=== PATIENT | male | born 1935 | race Caucasian/White ===

== ENCOUNTER 2020-12-28 11:32 | Inpatient (IN) | payer OTHER ==
[~2020-12-28] VITALS: Ht 182.9 cm; Wt 90.7 kg
[~2020-12-28 11:32] MED LIST: ASCO500 PO; CYCL10 PO; ERYT500; FISH1000 PO; FLUR100; HYDACE5 PO; PRED10 PO; TOCO400 PO; VITA25000 PO; Vitamin D2000 UNIT PO; [UNRECOGNIZED DRUG - OTHER] PO
[2020-12-28 12:19] LABS: BASOPHILS ABSOLUTE AUTO 0.01 K/mm3 (0.00-0.23); BASOPHILS PERCENT AUTO 0 % (0-2); EOSINOPHILS PERCENT AUTO 0 % (0-6); Hematocrit 33.4 % (37.0-53.0); Hemoglobin 11.2 g/dL (13.5-17.5); IMMATURE GRAN PERCENT AUTO 1 % (0-1); LYMPHOCYTES ABSOLUTE AUTO 0.61 K/mm3 (0.84-5.20); LYMPHOCYTES PERCENT AUTO 5 % (21-46); MONOCYTES ABSOLUTE AUTO 0.82 K/mm3 (0.16-1.47); MONOCYTES PERCENT AUTO 7 % (4-13); Mean Corpuscular HGB 32.8 pg (26.0-34.0); Mean Corpuscular HGB Conc 33.5 g/dL (31.5-36.5); Mean Corpuscular Volume 98 fL (80-100); Mean Platelet Volume 9.8 fL (9.1-12.4); NEUTROPHILS ABSOLUTE AUTO 10.54 K/mm3 (1.96-9.15); NEUTROPHILS PERCENT AUTO 87 % (41-73); Platelet Count 136 K/mm3 (150-400); RDW Coefficient Variation 13.8 % (11.7-14.2); RDW Standard Deviation 49.8 fL (35.1-46.3); Red Blood Cell Count 3.41 M/mm3 (4.30-5.90); White Blood Cell Count 12.08 K/mm3 (4.00-11.30)
[2020-12-28 12:37] LABS: Alanine Aminotransfer (ALT/SGP 22 U/L (12-78); Albumin, Blood 3.4 g/dL (3.4-5.0); Alk Phos 67 U/L (50-136); Anion Gap 7 mmol/L (6-16); Aspartate Aminotrans (AST/SGOT 12 U/L (12-37); Bilirubin, Total 0.7 mg/dL (0.1-1.0); Blood Urea Nitrogen 21 mg/dL (8-24); Bun/Creatinine Ratio 20.4 (12.0-20.0); CO2, Blood 26 mmol/L (21-32); Calcium, Blood 8.7 mg/dL (8.5-10.1); Chloride, Blood 106 mmol/L (98-108); Creatinine, Blood 1.03 mg/dL (0.60-1.20); Globulin, Blood 3.3 g/dL (2.2-4.0); Glomerular Filtration Rate >60 (60-); Glucose, Blood 108 mg/dL (70-99); Potassium, Blood 3.8 mmol/L (3.5-5.5); Sodium, Blood 139 mmol/L (136-145); Total Protein, Blood 6.7 g/dL (6.4-8.2)
[2020-12-28 14:10] LABS: SARS-Cov-2 (COVID-19) PCR, MMC NEGATIVE (NEGATIVE)
[2020-12-28 14:54] LABS: Source, Urine Catheter
[2020-12-28 14:58] LABS: Appearance, Urine Clear (Clear); Bilirubin, Urine Neg (Neg); Blood, Urine 3+ (Neg); Color, Urine Yellow (P-Yellow); Glucose Qualitative, Urine Neg (Neg); Ketones, Urine 2+ (Neg); Leukocyte Esterase, Urine 1+ (Neg); Nitrite, Urine Neg (Neg); Protein, Urine 3+ (Neg); Specific Gravity, Urine 1.025 (1.003-1.022); Urobilinogen, Urine NORM (Normal)
[2020-12-28 15:25] LABS: White Blood Cells, Urine 0-2 /hpf (0-5)
[2020-12-28 15:26] LABS: Bacteria Few /hpf; Squamous Epithelial Cells Rare /hpf (Few)
--- NOTE | 2020-12-28 20:04 | NUR ---
ADMIT NOTE HANDOFF RECEIVED FROM ER NURSE DUYEN. PT BROUGHT TO FLOOR VIA GURNEY. PERSONAL POSSESSIONS WITH PT. PT ORIENTED TO UNIT. CALL BUTTON WITHIN REACH. IV FLUIDS STARTED ORDERED. VIDEO MONITORING IN PLACE. BED ALARM IS ON.
--- NOTE | 2020-12-28 23:40 | NUR ---
VERIFIED VIDEO MONITORING CALLED VIDEO DAYCARE WORKER TO VERIFY VIDEO MONITORING IS IN PLACE FOR THIS PT.
--- NOTE | 2020-12-29 02:33 | NUR ---
CALLED HOSPITALIST PT HIGHLY AGITATED SUDDENLY. PULLING AT LINES, CLOTHES, RAILINGS. PT CONTINUOUSLY MOVING EXTREMETIES AND BODY. PT STATED HE FELT SOB. O2 SAT WAS WITHIN NORMAL LIMITS. I DID ASK RESPIRATORY TO CHECK HIM OUT AND HE WAS WNL IN THEIR OPINION. I DID CALL HOSPITALIST AND REQUEST MEDICATION FOR AGITATION. I ALSO MEDICATED THIS PT FOR PAIN AND I GOT HIM A COUPLE OF WARM BLANKETS
--- NOTE | 2020-12-29 04:13 | NUR ---
SHIFT SUMMARY ADMITTED FOR AMS/SOB/SEPSIS. DNI CODE. HE MAY HAVE CELLULITIS ON LEFT ANKLE. ATYPICAL PNEUMONIA IS POSSIBLE ALSO. IV ANTIB RX ARE SCHEDULED. SO FAR WE HAD ONE EPISODE OF TACHYPNEA AND AGITATION. RESPIRATORY EVALUATED AND WE AGREED THIS SEEMED LIKE MORE OF AN ANXIETY AND/OR PAIN RESPONSE. O2 SATS WNL. I DID GET ORDERS FOR PRN ANXIETY RX AND I ALSO MEDICATED FOR PAIN. THIS DID APPEAR EFFECTIVE. THE PT CALMED AND EVENTUALLY FELL ASLEEP. IT WAS REPORTED TO ME BY ER STAFF THAT HIS WAS A POOR HISTORIAN AND MAY POSSIBLY ALSO HAVE DEMENTIA.
[2020-12-29 07:38] LABS: BASOPHILS ABSOLUTE AUTO 0.01 K/mm3 (0.00-0.23); BASOPHILS PERCENT AUTO 0 % (0-2); EOSINOPHILS PERCENT AUTO 0 % (0-6); Hematocrit 31.8 % (37.0-53.0); Hemoglobin 10.5 g/dL (13.5-17.5); IMMATURE GRAN ABSOLUTE AUTO 0.05 K/mm3 (0.00-0.10); IMMATURE GRAN PERCENT AUTO 1 % (0-1); LYMPHOCYTES ABSOLUTE AUTO 0.42 K/mm3 (0.84-5.20); LYMPHOCYTES PERCENT AUTO 4 % (21-46); MONOCYTES ABSOLUTE AUTO 0.64 K/mm3 (0.16-1.47); MONOCYTES PERCENT AUTO 6 % (4-13); Mean Corpuscular HGB 32.6 pg (26.0-34.0); Mean Corpuscular Volume 99 fL (80-100); Mean Platelet Volume 10.2 fL (9.1-12.4); NEUTROPHILS ABSOLUTE AUTO 9.06 K/mm3 (1.96-9.15); NEUTROPHILS PERCENT AUTO 89 % (41-73); Platelet Count 119 K/mm3 (150-400); RDW Coefficient Variation 13.9 % (11.7-14.2); RDW Standard Deviation 50.7 fL (35.1-46.3); Red Blood Cell Count 3.22 M/mm3 (4.30-5.90); White Blood Cell Count 10.18 K/mm3 (4.00-11.30)
[2020-12-29 07:59] LABS: Alanine Aminotransfer (ALT/SGP 23 U/L (12-78); Albumin, Blood 2.8 g/dL (3.4-5.0); Albumin/Globulin Ratio 0.9 (0.8-1.8); Alk Phos 56 U/L (50-136); Anion Gap 4 mmol/L (6-16); Aspartate Aminotrans (AST/SGOT 24 U/L (12-37); Bilirubin, Total 0.4 mg/dL (0.1-1.0); Blood Urea Nitrogen 21 mg/dL (8-24); Bun/Creatinine Ratio 21.6 (12.0-20.0); CO2, Blood 25 mmol/L (21-32); Calcium, Blood 8.1 mg/dL (8.5-10.1); Chloride, Blood 111 mmol/L (98-108); Creatinine, Blood 0.97 mg/dL (0.60-1.20); Glomerular Filtration Rate >60 (60-); Glucose, Blood 101 mg/dL (70-99); Potassium, Blood 3.4 mmol/L (3.5-5.5); Sodium, Blood 140 mmol/L (136-145); Total Protein, Blood 5.8 g/dL (6.4-8.2)
--- NOTE | 2020-12-29 18:17 | NUR ---
SHIFT SUMMARY: NO ACUTE EVENTS. HE IS A&O X 1-2, CONFUSED, IMPULSIVE, EASILY IRRITABLE. HAVING URINARY FREQUENCY, POSSIBLE RETENTION. NO C/O PAIN TODAY, STATED THAT HIS L FOOT WAS "A LITTLE TENDER." GAIT IS IMPAIRED, HIGH FALL RISK, CHAIR AND BED ALARMS IN USE. TOLERATING IV ABX. APPETITE OK. ERYTHEMA AND EDEMA ON L FOOT HAS IMPROVED. VISITED FOR A BRIEF TIME TODAY, PT WAS SLEEPING.
[2020-12-30 04:45] LABS: BASOPHILS ABSOLUTE AUTO 0.01 K/mm3 (0.00-0.23); BASOPHILS PERCENT AUTO 0 % (0-2); EOSINOPHILS ABSOLUTE AUTO 0.15 K/mm3 (0.00-0.68); EOSINOPHILS PERCENT AUTO 2 % (0-6); Hematocrit 34.9 % (37.0-53.0); Hemoglobin 11.6 g/dL (13.5-17.5); IMMATURE GRAN ABSOLUTE AUTO 0.03 K/mm3 (0.00-0.10); IMMATURE GRAN PERCENT AUTO 0 % (0-1); LYMPHOCYTES PERCENT AUTO 10 % (21-46); MONOCYTES ABSOLUTE AUTO 0.81 K/mm3 (0.16-1.47); MONOCYTES PERCENT AUTO 11 % (4-13); Mean Corpuscular HGB 32.6 pg (26.0-34.0); Mean Corpuscular HGB Conc 33.2 g/dL (31.5-36.5); Mean Corpuscular Volume 98 fL (80-100); NEUTROPHILS ABSOLUTE AUTO 5.88 K/mm3 (1.96-9.15); NEUTROPHILS PERCENT AUTO 77 % (41-73); Platelet Count 132 K/mm3 (150-400); RDW Coefficient Variation 13.7 % (11.7-14.2); RDW Standard Deviation 49.7 fL (35.1-46.3); Red Blood Cell Count 3.56 M/mm3 (4.30-5.90); White Blood Cell Count 7.68 K/mm3 (4.00-11.30)
[2020-12-30 05:03] LABS: Anion Gap 6 mmol/L (6-16); Blood Urea Nitrogen 19 mg/dL (8-24); Bun/Creatinine Ratio 21.3 (12.0-20.0); CO2, Blood 25 mmol/L (21-32); Calcium, Blood 8.4 mg/dL (8.5-10.1); Chloride, Blood 111 mmol/L (98-108); Creatinine, Blood 0.89 mg/dL (0.60-1.20); Glomerular Filtration Rate >60 (60-); Glucose, Blood 94 mg/dL (70-99); Potassium, Blood 3.4 mmol/L (3.5-5.5); Sodium, Blood 142 mmol/L (136-145)
--- NOTE | 2020-12-30 05:57 | NUR ---
SHIFT SUMMARY- PT. CONFUSED AND IMPULSIVE DURING THE NIGHT, ALERT TO SELF. FREQUENT URINATION T/O THE NIGHT. CONT/INCONT, ATTENDS IN PLACE. OCCASIONALLY USING URINAL AT BEDSIDE WITH FREQUENT ACCIDENTS IN BED. CONDOM CATHETER PUT ON, TOLERATED WELL. PT. HAD ELEVEATED BP THIS SHIFT, HOSPITALIST NOTIFED. RECEIVED ORDER FOR NOW DOSE OF METOPROLOL AND SCHEDULED BID, ADMINISTERED PER EMAR. NO COMPLAINTS OF PAIN OR DISCOMFORT T/O THE NIGHT. PT. SITTING IN CHAIR AT THIS TIME, DENIES NEEDS. CALL LIGHT WITHIN REACH AND CHAIR ALARM. WILL CONT TO MONITOR.
[2020-12-30] MEDS ORDERED: MIRALAX17 G2 PO (12:12)
[2020-12-30] MEDS ORDERED: B-121000 MC4 PO (12:17)
[2020-12-30] MEDS ORDERED: FISH OIL 1,2001 EAC7 PO (12:17)
[2020-12-30] MEDS ORDERED: TEMOVATE15 G1 TOP (12:19)
[2020-12-30] MEDS ORDERED: TERBINAFINE15 GM TOP (12:21)
[2020-12-30] MEDS ORDERED: GORMEL TEN228 G1 TOP (12:22)
[2020-12-30] MEDS ORDERED: TRIDERM28.4 GM TOP (12:23)
[2020-12-30] MEDS ORDERED: VITAMIN A PO (12:24)
[2020-12-30] MEDS ORDERED: CEFD300 PO (12:56)
[2020-12-30] MEDS ORDERED: LOSA50 PO (13:11)
[2020-12-30 14:44] LABS: Vancomycin, Trough 6.8 ug/mL (5.0-10.0)
--- NOTE | 2020-12-30 16:12 | NUR ---
Patient is adament about taking the ty off. Was agitated trying to hit when i was tieing the ty.
--- NOTE | 2020-12-30 16:34 | NUR ---
Patient is confused. was under the immpression he was going home. around noon wanted his personal belongings. started getting dressed. He is a fall risk and was getting up frequently to try either to go for a walk and to use the restroom. He threatened to be combative, so I called security. He layed down in bed. He was being combative toward the nurse and all staff. He is emotional because he spoke with his told her to take him home. Family showed up and is distraught. Patient is in ty and wrist restaints for being combative and treatening.
--- NOTE | 2020-12-30 16:56 | NUR ---
Patient refused vitals.
--- NOTE | 2020-12-30 17:10 | NUR ---
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 PT HAD UNEVENTFUL MORNING WITH MODERATE CONFUSION AND SOME REDIRECTABLE BEHAVIOR. AROUND 1300, PT BECAME QUITE AGITATED AND IRRITABLE WANTING TO WALK AROUND THE UNIT WITHOUT ASSISTANCE/WALKER. PT AGREED TO TAKING SEROQUEL, WHICH RESULTED IN A CALMER PERIOD FOR ABOUT 1 HOUR. AFTER PATIENT WAS BACK UP, HE CONTINUED TO GET MORE AGGRESSIVE AND VERBALLY AND PHYSICALLY COMBATIVE. SECURITY AND STRAWHAT BLOCKING OPERATOR CALLED FOR BACK UP AND PT WAS PLACED IN KEELEY VEST RESTRAINT. THE PATIENT WAS EASILY ABLE TO UNTIE THE KEELEY, SO UPDATED THE ORDER TO ADD 2 POINT WRIST NON VOILENT SOFT RESTRAINTS AND 4 SIDE RAILS. RESTRAINTS APPLIED AND PATIENT CONTINUED EMOTIONALLY ESCALATE, THREATENING STAFF, KICKING, ATTEMPTING TO HIT AND SPITTING OUT WATER AT NURSE. PT REFUSED TO TAKE ADDITIONAL SEROQUEL AT THIS POINT AND DR SCHULTZ ORDERED ZYPREXA IM. PATIENT'S IN ROOM DURING PT'S BEHAVIOR CHANGES, AND UPDATED ON PLAN OF CARE. ACCORDING TO LAST UPDATE FROM LINE OUT WORKER, CURRENT PLAN IS STILL BEING CONSIDERED BETWEEN SNF PLACEMENT OR BACK HOME WITH . PT'S STATES HIS BEHAVIOR IS WAY OFF HIS NORMAL BASELINE AND SHE WAS VERY EMOTIONAL SEEING HIM LIKE THIS. THERAPEUTIC COMMUNICATION PROVIDED. THE PATIENT IS CURRENTLY LYING IN BED IN WRIST/KEELEY/SIDE RAIL RESTRAINTS WITH CALL LIGHT IN REACH. PT REFUSED AFTERNOON VITALS.
--- NOTE | 2020-12-31 06:24 | NUR ---
SHIFT SUMMARY- PT. IN KEELEY VEST AND BILATERAL SOFT WRIST RESTRAINTS. AGITATED AND COMBATIVE DURING THE NIGHT. MEDICATED WITH PRN SEROQUEL AND ZYPREXA WITH NO EFFECT. ATTEMPTED TO ASSIST PT. UP TO RECLINER CHAIR, PT. BEGAN HITTING AND KICKING. NOTED MULTIPLE BRUISING TO BUE AND SKIN TEAR TO R ELBOW R/T PT. AGITATED IN BED AND TRYING TO PULL OUT RESTRAINTS. BP ELEVATED DURING THEN NIGHT, MEDICATED PER EMAR X2, BP IMPROVED THIS AM. CALL LIGHT WITHIN REACH, SIDE RAILS UPX4, AND BED ALARM ON. WILL CONT TO MONITOR.
--- NOTE | 2021-01-01 04:40 | NUR ---
SHIFT SUMMARY PT HAS SLEPT MOST OF THE SHIFT, VERY DROWSY AND LETHARGIC, AWAKES TO VERBAL STIMULI BUT QUICKLY FALLS BACK TO SLEEP. VITALS ARE STABLE. PT CONFUSED A/O TO SELF ONLY. PT HAS NOT BEEN COMBATIVE TOWARDS STAFF THIS SHIFT AND HAS BEEN COOPERATIVE WITH CARE. INCONTINENT, REQUIRING A LINEN CHANGE THIS SHIFT. IVF INFUSING. BED IN LOWEST POSITION, CALL LIGHT WITHIN REACH.
--- NOTE | 2021-01-01 05:57 | NUR ---
AM NOTE PT AWOKE THIS MORNING COMPLETELY A/O TO PERSON, PLACE, SELF AND YEAR. PT WAS ABLE TO MAKE CONVERSATION, AND WAS PLESANT TOWARDS STAFF. PT AMBULATED TO THE BATHROOM WITH 2 PA AND A FWW AND HAS GOOD STRENGTH.
--- NOTE | 2021-01-01 17:40 | NUR ---
SHIFT SUMMARY PT SLEPT LATE THIS AM, UNABLE TO WAKE FOR BREAKFAST UNTIL LATER. PT THEN MUCH MORE ORIENTED THAN YESTERDAY, PER REPORT AND GLOBAL TECHNICAL WRITER WHO WAS HERE YESTERDAY WELL. PT UP TO BTHRM WHEN AWAKE AND THEN TO CHAIR AT BS. PT ABLE TO WORK WITH THERAPY TODAY AND WALK IN [place] AND . PT'S HERE TO VISIT THIS AFTERNOON. PER , PT IS STILL NOT HIS USUAL SELF. ORIENTED OFF AND ON, AND GETS IMPATIENT, WANTING TO GO HOME. PER DR CHU, PT TO D/C TO R/H ON WEDNESDAY. IV ABX INFUSING PER EMAR. PT ABLE TO FEED HIMSELF TODAY. DENIED PAIN. NO OTHER C/O. CALL LT IN REACH.
--- NOTE | 2021-01-02 05:57 | NUR ---
SHIFT SUMMARY PATIENT ALERT AND ORIENTED X2. PLEASANTLY CONFUSED. HAD NO COMPLAINTS OF PAIN OR SHORTNESS OF BREATH. NO ACUTE ISSUES NOTED OVERNIGHT. IV PATENT AND INFUSING. BED IN LOWEST POSITION WITH WHEELS LOCKED AND ALARM ON. CALL LIGHT WITHIN REACH. REPORT GIVEN TO ONCOMING RN.
--- NOTE | 2021-01-02 17:57 | NUR ---
NO ACUTE CHANGES TO PT. PT TO DISCHARGE HOME WITH ON WEDNESDAY.
--- NOTE | 2021-01-02 22:20 | NUR ---
PHYSICIAN COMMUNICATION SPOKE WITH DR ELI INFORMING HIM THAT THE PATIENT WAS AGITATED, NOT RESPONDING TO MEDICATIONS. DR ELI OKAYED ORDER FOR RESTRAINTS, KEELEY, SOFT WRISTS, AND FOUR SIDE RAILS.
--- NOTE | 2021-01-03 05:43 | NUR ---
SHIFT SUMMARY PATIENT ALERT AND ORIENTED TO SELF, NOT REDIRECTABLE. PATIENT VERY ANXIOUS AND REQUIRED TO BE MEDICATED WITH IV ATIVAN PER EMAR AND BEING PLACED IN RESTRAINTS. IV PATENT AND FLUSHED. BED IN LOWEST POSITION WITH WHEELS LOCKED AND ALARM ON. CALL LIGHT WITHIN REACH. REPORT GIVEN TO ONCOMING RN.
--- NOTE | 2021-01-03 07:07 | NUR ---
PATIENT ACTING AGGRESSIVE TOWARDS STAFF. INTERFERING WITH STAFF PROVIDING CARE. IM ZYPREXA ADMINISTERED.
[2021-01-03 13:48] LABS: BASOPHILS ABSOLUTE AUTO 0.04 K/mm3 (0.00-0.23); BASOPHILS PERCENT AUTO 1 % (0-2); EOSINOPHILS ABSOLUTE AUTO 0.22 K/mm3 (0.00-0.68); EOSINOPHILS PERCENT AUTO 3 % (0-6); Hematocrit 36.9 % (37.0-53.0); Hemoglobin 12.2 g/dL (13.5-17.5); IMMATURE GRAN ABSOLUTE AUTO 0.06 K/mm3 (0.00-0.10); IMMATURE GRAN PERCENT AUTO 1 % (0-1); LYMPHOCYTES ABSOLUTE AUTO 0.76 K/mm3 (0.84-5.20); LYMPHOCYTES PERCENT AUTO 10 % (21-46); MONOCYTES ABSOLUTE AUTO 0.62 K/mm3 (0.16-1.47); MONOCYTES PERCENT AUTO 8 % (4-13); Mean Corpuscular HGB 32.1 pg (26.0-34.0); Mean Corpuscular HGB Conc 33.1 g/dL (31.5-36.5); Mean Corpuscular Volume 97 fL (80-100); NEUTROPHILS ABSOLUTE AUTO 6.26 K/mm3 (1.96-9.15); NEUTROPHILS PERCENT AUTO 79 % (41-73); Platelet Count 175 K/mm3 (150-400); RDW Coefficient Variation 13.5 % (11.7-14.2); RDW Standard Deviation 48.1 fL (35.1-46.3); White Blood Cell Count 7.96 K/mm3 (4.00-11.30)
[2021-01-03 14:19] LABS: Anion Gap 6 mmol/L (6-16); Blood Urea Nitrogen 14 mg/dL (8-24); Bun/Creatinine Ratio 20.9 (12.0-20.0); CO2, Blood 25 mmol/L (21-32); Calcium, Blood 8.7 mg/dL (8.5-10.1); Chloride, Blood 111 mmol/L (98-108); Creatinine, Blood 0.67 mg/dL (0.60-1.20); Glomerular Filtration Rate >60 (60-); Glucose, Blood 100 mg/dL (70-99); Potassium, Blood 3.2 mmol/L (3.5-5.5); Sodium, Blood 142 mmol/L (136-145)
--- NOTE | 2021-01-03 17:47 | NUR ---
SHIFT SUMMARY PT AXO TO FAMILY ONLY. PT IRRITABLE AND ANXIOUS WHEN AWAKE. PT IN WRIST RESTRAINTS AT START OF SHIFT. PT'S SPOUSE IN AT 0900 WHO REQUESTED THEN REMOVED THE WRIST RESTRAINTS. THIS NURSE ASKED SPOUSE TO STAY WITH PATIENT TO KEEP HIM CALM AND TO NOTIFY THIS NURSE WHEN SHE LEAVES. PATIENT BACK IN WRIST RESTRAINTS TO PROTECT SELF, STAFF AND IV AT 1516. ALTERNATE IV ATTEMPTED R/T NEW ORDER OF IV POTASSIUM, UNSUCESSFUL. AT 0758 PT HYPERTENSIVE AT 185/111, MEDICATED PER EMAR, DR SCHULTZ NOTIFIED, NO NEW ORDERS. 149/78 AT 0851. THEN AT 1546 PT WAS 189/102. DR SCHULTZ NOTIFIED AND MEDICATED PER EMAR. PERSONNEL MONITOR TO RECHECK BP AT THIS TIME. AWAITING COLLECTION OF URINE AT THIS TIME. PT INCONTINENT BUT SOMETIMES VOIDS IN URINAL. LAST ATTEMPT, PT UNCOOPERATIVE AND COLLECTION UNSUCCESSFUL. PT MEDICATED FOR ANXIETY WHILE SPOUSE WAS PRESENT, WITH ATIVAN PER EMAR. THIS MED DC'D TODAY. MEDICATED WITH SEROQUEL X1 THIS SHIFT FOR AGGITATION, SEE MAR. BED IN LOW POSITION, CALL LIGHT WITHIN REACH, BED ALARM ON.
--- NOTE | 2021-01-04 19:08 | NUR ---
PT RESTING IN BED AFTER DINNER, TRANSPORT TO AND FROM CT, AND PM MEDICATION ADMIN. PT MAKES NO COMPLAINTS AT THIS TIME AND WAS MILDLY AGGITATED THIS SHIFT REACHING FOR HIS IV STATING "I NEED THIS OUT." AT BEDSIDE THIS SHIFT AND STATES PT AGGITATION AND MENTATION IS BELOW BASELINE. BILAT SOFT WRIST RESTRAINTS IN USE FOR SAFETY AND FALL RISK. BED IN LOW POSITION AND CALL LIGHT WITHIN REACH.
--- NOTE | 2021-01-05 04:03 | NUR ---
PATIENT HAD A DIFFICULT START TO THE SHIFT. SEROQUEL GIVEN AT BEDTIME AND IM ZYPREXA ADMINISTERED A COUPLE OF HOURS LATER. PATIENT CONTINUED TO ATTEMPT TO CLIMB OUT OF BED AND WAS VERY DIFFICULT TO REDIRECT. ORIENTED TO SELF ONLY. I PLACED KEELEY VEST ON HIM FOR INCREASED PATIENT SAFETY AND RECIEVED AN ORDERED FROM DR LAMAR. PATIENT CONTINUES ON NS @ 50/HR. PATIENT HAS NOW BEEN ASLEEP AND IS RESTING COMFORTABLY IN BED. CALL LIGHT IS WITHIN REACH.
--- NOTE | 2021-01-05 18:31 | NUR ---
PT IS RESTING IN BED, ALERT AND ORIENTED TO SELF. PT CONINUES WITH KEELEY VEST AND 4 SIDERAILS FOR SAFETY HE IS A HIGH FALL RISK, CONTINUES TO TRY AND GET UP FROM BED, AGGIATATION, SWINGS ARMS WHEN UPSET AND PULLS ON LINES. PT HAS BEEN MEDICATION COMPLIANT AND ATE ALL THREE MEALS. NO OTHER ACUTE CHANGES. BED IN LOW POSITION AND CALL LIGHT WITHIN REACH. STAFF WILL CONT. TO MONITOR.
--- NOTE | 2021-01-06 04:01 | NUR ---
SHIFT SUMMARY A/O TO SELF ONLY. GARBLED, NONSENSICAL SPEECH AT TIMES. ATTEMPTING TO GET OOB T/O NIGHT. PT BEING VERBALLY ABUSIVE AND HITTING STAFF. BILATERAL SOFT WRIST RESTRAINTS PLACED IN ADDITION TO KEELEY AND 4 SIDE RAILS. IM ZYPREXA GIVEN WITH NO DECREASE IN AGITATION NOTED. REFUSING AM VITALS. BED IN LOWEST POSITION WITH CALL LIGHT IN REACH. WILL CONTINUE TO MONITOR AND REPORT TO ONCOMING RN.
[2021-01-06 09:18] LABS: BASOPHILS ABSOLUTE AUTO 0.04 K/mm3 (0.00-0.23); BASOPHILS PERCENT AUTO 1 % (0-2); EOSINOPHILS ABSOLUTE AUTO 0.17 K/mm3 (0.00-0.68); EOSINOPHILS PERCENT AUTO 3 % (0-6); Hematocrit 37.2 % (37.0-53.0); Hemoglobin 12.5 g/dL (13.5-17.5); IMMATURE GRAN ABSOLUTE AUTO 0.06 K/mm3 (0.00-0.10); IMMATURE GRAN PERCENT AUTO 1 % (0-1); LYMPHOCYTES ABSOLUTE AUTO 0.69 K/mm3 (0.84-5.20); LYMPHOCYTES PERCENT AUTO 10 % (21-46); MONOCYTES ABSOLUTE AUTO 0.44 K/mm3 (0.16-1.47); MONOCYTES PERCENT AUTO 7 % (4-13); Mean Corpuscular HGB 32.3 pg (26.0-34.0); Mean Corpuscular HGB Conc 33.6 g/dL (31.5-36.5); Mean Corpuscular Volume 96 fL (80-100); Mean Platelet Volume 9.6 fL (9.1-12.4); NEUTROPHILS ABSOLUTE AUTO 5.36 K/mm3 (1.96-9.15); NEUTROPHILS PERCENT AUTO 79 % (41-73); Platelet Count 210 K/mm3 (150-400); RDW Coefficient Variation 13.7 % (11.7-14.2); RDW Standard Deviation 48.6 fL (35.1-46.3); Red Blood Cell Count 3.87 M/mm3 (4.30-5.90); White Blood Cell Count 6.76 K/mm3 (4.00-11.30)
[2021-01-06 09:35] LABS: Anion Gap 3 mmol/L (6-16); Blood Urea Nitrogen 13 mg/dL (8-24); Bun/Creatinine Ratio 16.6 (12.0-20.0); CO2, Blood 30 mmol/L (21-32); Calcium, Blood 9.2 mg/dL (8.5-10.1); Chloride, Blood 110 mmol/L (98-108); Creatinine, Blood 0.78 mg/dL (0.60-1.20); Glomerular Filtration Rate >60 (60-); Glucose, Blood 102 mg/dL (70-99); Potassium, Blood 3.4 mmol/L (3.5-5.5); Sodium, Blood 143 mmol/L (136-145)
--- NOTE | 2021-01-06 17:33 | NUR ---
SUMM- PT ALERT TO SELF. SLEPT MOST OF THE DAY. DURING WAKING HOURS PT IS RESTLESS AND AGITATED WITH PT CARE. BECAME COMBATIVE DURING ATTENDS CHANGE. TRIES TO GET OOB AND UNDO RESTRAINTS DUSING WAKING HOURS. YEAST RASH NOTED TO GROIN, STARTED ON NYSTATIN CREAM. BP'S ELEVATED TODAY, HYDRALAZINE 10MG AT 1730, WILL F/U WITH BP. PT REFUSED LUNCH AND A FEEDER FOR BREAKFAST. NOT TAKING IN ORAL FLUIDS AND HAS IVF RUNNING. IS INCONT ATTENDS. ADJUSTS SELF FREQ IN BED AND STAFF ROUTINE TURNS AND CHANGE.
--- NOTE | 2021-01-07 03:34 | NUR ---
SHIFT SUMMARY A/O TO SELF ONLY. SPEECH MORE CLEAR THIS SHIFT. PT STATES THAT HE PREFERS TO CLEAN HIS GROIN AREA ON HIS OWN. THIS MAY BE A FACTOR THAT CONTRIBUTES TO HIS AGITATION. PT COOPERATIVE T/O SHIFT AND RESTING IN BED. RESTRAINTS IN PLACE FOR SAFETY. VSS, NO ACUTE CHANGES AT THIS TIME. BED IN LOWEST POSITION WITH CALL LIGHT IN REACH. WILL CONTINUE TO MONITOR AND REPORT TO ONCOMING RN.
--- NOTE | 2021-01-07 17:38 | NUR ---
SUMMARY- PT ALERT TO SELF AND FAMILY, FOLLOWS DIRECTIONS. UP IN CHAIR MOST OF THE DAY WALKED 6 STEPS TO CHAIR WITH GB/WALKER AND 2 STAFF MAX ASSIST, PT IS RIGID AND WANTS TO LEAN. VOIDED IN URINAL MOST OF THE TIME. FED SELF AND TOLERATING FOOD AND FLUIDS. CONT IVF 5OML/HR. AWAITING PLACEMENT
--- NOTE | 2021-01-08 04:45 | NUR ---
SHIFT SUMMARY A/O TO SELF AND FAMILY. SPEECH BECOMING MORE CLEAR COMPARED TO PREVIOUS TWO NIGHTS. MEDICATED FOR BACK PAIN X1. KEELEY RESTRAINT AND [address] FOR SAFETY. ABLE TO USE CALL LIGHT TO USE URINAL. BED IN LOWEST POSITION WITH CALL LIGHT IN REACH. WILL CONTINUE TO MONITOR AND REPORT TO ONCOMING RN.
--- NOTE | 2021-01-08 18:48 | NUR ---
SHIFT SUMMARY PT HAS BEEN UP IN RECLINER CHAIR MOST OF DAY AND IN HALLWAY WITH STAFF BY HIS CHOICE FOR SHORT TIME. IN THIS AFTERNOON WITH PLANS FOR PT TO DISCHARGE HOME TOMORROW MORNING AT 10AM. PT EASILY IRRITATED AND FOCUSED ON SUBJECTS RELATED TO [facility]. 1 PERSON ASSIST WITH TRANSFERS AND AMBULATING.
--- NOTE | 2021-01-09 05:25 | NUR ---
SHIFT SUMMARY A/O 1-2, MORE ORIENTED DURING BEGINNING OF SHIFT WITH KEELEY RESTRAINT D/C'D. T/O NIGHT PT BECAME MORE CONFUSED AND AGITATED WITH STAFF BUT STILL DIRECTABLE. 2 ASSIST WITH FWW AND GB. VSS, NO ACUTE CHANGES AT THIS TIME. BED IN LOWEST POSITION WITH CALL LIGHT IN REACH. WILL CONTINUE TO MONITOR AND REPORT TO ONCOMING RN.
[2021-01-09] MEDS ORDERED: METO25 PO (11:29)
[2021-01-09] MEDS ORDERED: Seroquel Xr50 MG PO ×2 (11:29→11:30)
== END 2021-01-09 12:00 | disposition home health service (06) | DRG 871 ==
LOC: ER 11:32 → MEDS 17:10 → ENPENDDIS 01-09 09:56 → MEDS 01-09 12:00
PROVIDERS: Family Medicine; Internal Medicine; Pharmacist; Student in an Organized Health Care Education/Training Program; ADMIT Hospitalist
DX: A41.9 Sepsis, unspecified organism (principal); G92 Toxic encephalopathy; L03.116 Cellulitis of left lower limb; K90.41 Non-celiac gluten sensitivity; F02.81 Dementia in other diseases classified elsewhere, unspecified severity, with behavioral disturbance; F05 Delirium due to known physiological condition; Z20.822 Contact with and (suspected) exposure to COVID-19; R65.20 Severe sepsis without septic shock; G30.9 Alzheimer's disease, unspecified; M19.072 Primary osteoarthritis, left ankle and foot; I10 Essential (primary) hypertension; L40.9 Psoriasis, unspecified; Z88.0 Allergy status to penicillin; Z91.018 Allergy to other foods; Z79.899 Other long term (current) drug therapy; Z86.010 Personal history of colon polyps; Z98.49 Cataract extraction status, unspecified eye; Z87.891 Personal history of nicotine dependence; Z78.1 Physical restraint status
CPT/HCPCS: 36415; 70450; 71045; 73600; 80048; 80053; 80202; 81001; 82947; 83605; 84145; 85025; 87040; 87086; 92610; 93005; 93010; 94760; 96365; 96366; 96367; 96368; 96375; 97110; 97112; 97116; 97162; 97166; 97530; 97535; 99285-25; A9270; G0480; J0360; J0690; J0696; J1650; J2060; J2270; J3370; J3480; J7030; J7050; U0004

== ENCOUNTER 2021-01-10 13:36 | Emergency (ER) | payer MEDICARE, OTHER ==
[~2021-01-10] VITALS: Ht 185.4 cm; Wt 77.1 kg
[~2021-01-10 13:36] MED LIST changes: +B-121000 MC4 PO; +CEFD300 PO; +FISH OIL 1,2001 EAC7 PO; +GORMEL TEN228 G1 TOP; +LOSA50 PO; +METO25 PO; +MIRALAX17 G2 PO; +Seroquel Xr50 MG PO; +TEMOVATE15 G1 TOP; +TERBINAFINE15 GM TOP; +TRIDERM28.4 GM TOP; +VITAMIN A PO
[2021-01-10 15:14] LABS: Alanine Aminotransfer (ALT/SGP 59 U/L (12-78); Albumin, Blood 2.7 g/dL (3.4-5.0); Albumin/Globulin Ratio 0.8 (0.8-1.8); Alk Phos 64 U/L (50-136); Anion Gap 5 mmol/L (6-16); Aspartate Aminotrans (AST/SGOT 45 U/L (12-37); Bilirubin, Total 0.4 mg/dL (0.1-1.0); Blood Urea Nitrogen 30 mg/dL (8-24); Bun/Creatinine Ratio 28.6 (12.0-20.0); CO2, Blood 25 mmol/L (21-32); Calcium, Blood 8.1 mg/dL (8.5-10.1); Chloride, Blood 112 mmol/L (98-108); Creatinine, Blood 1.05 mg/dL (0.60-1.20); Ethanol (Alcohol), Blood, Med <3 mg/dL; Globulin, Blood 3.3 g/dL (2.2-4.0); Glomerular Filtration Rate >60 (60-); Glucose, Blood 116 mg/dL (70-99); Potassium, Blood 4.4 mmol/L (3.5-5.5); Sodium, Blood 142 mmol/L (136-145)
[2021-01-10 15:56] LABS: Source, Urine Clean Catch
[2021-01-10 16:06] LABS: Appearance, Urine Clear (Clear); Bilirubin, Urine Neg (Neg); Blood, Urine 1+ (Neg); Color, Urine Yellow (P-Yellow); Glucose Qualitative, Urine Neg (Neg); Ketones, Urine Neg (Neg); Leukocyte Esterase, Urine Neg (Neg); Nitrite, Urine Neg (Neg); Protein, Urine 1+ (Neg); Specific Gravity, Urine 1.015 (1.003-1.022); Urobilinogen, Urine NORM (Normal)
[2021-01-10 16:16] LABS: U Amphetamine Screen Not Detected; U Barbituate Screen Not Detected; U Benzodiazapine Screen Not Detected; U Buprenorphine Screen Not Detected; U Cannabinoids Screen Not Detected; U Cocaine Screen Not Detected; U Methadone Screen Not Detected; U Methamphetamine Screen Not Detected; U Opiates Screen Not Detected; U Oxycodone Screen Not Detected; U Phencyclidine Screen Not Detected; U Propoxyphene Screen Not Detected
[2021-01-10 16:27] LABS: Bacteria Mod /hpf; Red Blood Cells, Urine 0-2 /hpf (0-2); Squamous Epithelial Cells Rare /hpf (Few); White Blood Cells, Urine 0-2 /hpf (0-5)
[2021-01-10 16:45] LABS: BASOPHILS ABSOLUTE AUTO 0.03 K/mm3 (0.00-0.23); BASOPHILS PERCENT AUTO 0 % (0-2); EOSINOPHILS ABSOLUTE AUTO 0.09 K/mm3 (0.00-0.68); EOSINOPHILS PERCENT AUTO 1 % (0-6); Hematocrit 33.1 % (37.0-53.0); IMMATURE GRAN ABSOLUTE AUTO 0.09 K/mm3 (0.00-0.10); IMMATURE GRAN PERCENT AUTO 1 % (0-1); LYMPHOCYTES PERCENT AUTO 11 % (21-46); MONOCYTES ABSOLUTE AUTO 0.66 K/mm3 (0.16-1.47); MONOCYTES PERCENT AUTO 7 % (4-13); Mean Corpuscular HGB 32.4 pg (26.0-34.0); Mean Corpuscular HGB Conc 33.2 g/dL (31.5-36.5); Mean Corpuscular Volume 98 fL (80-100); Mean Platelet Volume 9.9 fL (9.1-12.4); NEUTROPHILS ABSOLUTE AUTO 7.62 K/mm3 (1.96-9.15); NEUTROPHILS PERCENT AUTO 80 % (41-73); Platelet Count 215 K/mm3 (150-400); RDW Coefficient Variation 13.9 % (11.7-14.2); RDW Standard Deviation 49.1 fL (35.1-46.3); Red Blood Cell Count 3.39 M/mm3 (4.30-5.90); White Blood Cell Count 9.49 K/mm3 (4.00-11.30)
== END 2021-01-10 20:26 | disposition home or self-care (01) ==
LOC: ER 13:36
PROVIDERS: Student in an Organized Health Care Education/Training Program
DX: R41.0 Disorientation, unspecified (principal); E86.0 Dehydration; F03.90 Unspecified dementia, unspecified severity, without behavioral disturbance, psychotic disturbance, mood disturbance, and anxiety; Z88.0 Allergy status to penicillin; Z91.018 Allergy to other foods
CPT/HCPCS: 70450; 80053; 81001; 84443; 85025; 87086; 93005; 93010; 99285-25; A9270; G0480; J7030

== ENCOUNTER 2021-01-13 13:19 | Emergency (ER) | payer OTHER ==
[~2021-01-13] VITALS: Ht 182.9 cm; Wt 79.4 kg
[2021-01-13 13:56] LABS: BASOPHILS ABSOLUTE AUTO 0.04 K/mm3 (0.00-0.23); BASOPHILS PERCENT AUTO 1 % (0-2); EOSINOPHILS ABSOLUTE AUTO 0.27 K/mm3 (0.00-0.68); EOSINOPHILS PERCENT AUTO 5 % (0-6); Hematocrit 29.2 % (37.0-53.0); Hemoglobin 9.7 g/dL (13.5-17.5); IMMATURE GRAN ABSOLUTE AUTO 0.05 K/mm3 (0.00-0.10); IMMATURE GRAN PERCENT AUTO 1 % (0-1); LYMPHOCYTES ABSOLUTE AUTO 0.87 K/mm3 (0.84-5.20); LYMPHOCYTES PERCENT AUTO 16 % (21-46); MONOCYTES PERCENT AUTO 10 % (4-13); Mean Corpuscular HGB Conc 33.2 g/dL (31.5-36.5); Mean Corpuscular Volume 99 fL (80-100); Mean Platelet Volume 9.9 fL (9.1-12.4); NEUTROPHILS ABSOLUTE AUTO 3.56 K/mm3 (1.96-9.15); NEUTROPHILS PERCENT AUTO 67 % (41-73); Platelet Count 197 K/mm3 (150-400); RDW Standard Deviation 50.4 fL (35.1-46.3); Red Blood Cell Count 2.94 M/mm3 (4.30-5.90); White Blood Cell Count 5.29 K/mm3 (4.00-11.30)
[2021-01-13 14:04] LABS: Anion Gap 6 mmol/L (6-16); Blood Urea Nitrogen 21 mg/dL (8-24); Bun/Creatinine Ratio 19.8 (12.0-20.0); CO2, Blood 25 mmol/L (21-32); Calcium, Blood 7.9 mg/dL (8.5-10.1); Chloride, Blood 112 mmol/L (98-108); Creatinine, Blood 1.06 mg/dL (0.60-1.20); Glomerular Filtration Rate >60 (60-); Glucose, Blood 148 mg/dL (70-99); Potassium, Blood 3.8 mmol/L (3.5-5.5); Sodium, Blood 143 mmol/L (136-145)
[2021-01-13 14:11] LABS: CPK Creatine Kinase 82 U/L (39-308)
--- NOTE | 2021-01-13 17:54 | NUR ---
Met with patients . He was sleeping and did not awaken during conversation. pt had a fall today while loading his car. is very fatigued and weary from stress. Pt seems to be progressing more recently. states he is still manamging his medications and she does not know what he is taking. She states he is starting to have some personality changes. She was terfull at his decline. She has had to take over managing finances and the house.She is grieview the loss of her big strong and protector. We had a detatiled discussion of the trajectory of the disease and startegies of care. Pt is a will contact [facility] for services. Advised her to start the medicaid process. suggested she tour the [facility] and gave her information on a support group. warned her about caregiver stress. will follow up with supportive calls.
== END 2021-01-13 16:43 | disposition home or self-care (01) ==
LOC: ER 13:19
PROVIDERS: Student in an Organized Health Care Education/Training Program
DX: R29.6 Repeated falls (principal); E86.0 Dehydration; F03.90 Unspecified dementia, unspecified severity, without behavioral disturbance, psychotic disturbance, mood disturbance, and anxiety; R40.0 Somnolence; T43.595A Adverse effect of other antipsychotics and neuroleptics, initial encounter; Z88.0 Allergy status to penicillin; Z91.018 Allergy to other foods; Z79.899 Other long term (current) drug therapy; Z87.891 Personal history of nicotine dependence
CPT/HCPCS: 36415; 70450; 80048; 82550; 85025; 93005; 93010; 99284-25

== ENCOUNTER 2021-01-20 11:26 | Emergency (ER) | payer OTHER ==
[~2021-01-20] VITALS: Ht 182.9 cm; Wt 79.4 kg
[2021-01-20 12:27] LABS: BASOPHILS ABSOLUTE AUTO 0.04 K/mm3 (0.00-0.23); BASOPHILS PERCENT AUTO 1 % (0-2); EOSINOPHILS ABSOLUTE AUTO 0.18 K/mm3 (0.00-0.68); EOSINOPHILS PERCENT AUTO 4 % (0-6); Hematocrit 36.1 % (37.0-53.0); Hemoglobin 11.7 g/dL (13.5-17.5); IMMATURE GRAN ABSOLUTE AUTO 0.03 K/mm3 (0.00-0.10); IMMATURE GRAN PERCENT AUTO 1 % (0-1); LYMPHOCYTES ABSOLUTE AUTO 0.91 K/mm3 (0.84-5.20); LYMPHOCYTES PERCENT AUTO 18 % (21-46); MONOCYTES ABSOLUTE AUTO 0.42 K/mm3 (0.16-1.47); MONOCYTES PERCENT AUTO 8 % (4-13); Mean Corpuscular HGB 32.5 pg (26.0-34.0); Mean Corpuscular HGB Conc 32.4 g/dL (31.5-36.5); Mean Corpuscular Volume 100 fL (80-100); NEUTROPHILS ABSOLUTE AUTO 3.47 K/mm3 (1.96-9.15); NEUTROPHILS PERCENT AUTO 69 % (41-73); Platelet Count 220 K/mm3 (150-400); RDW Standard Deviation 51.3 fL (35.1-46.3); White Blood Cell Count 5.05 K/mm3 (4.00-11.30)
[2021-01-20 12:50] LABS: Alanine Aminotransfer (ALT/SGP 27 U/L (12-78); Albumin, Blood 3.2 g/dL (3.4-5.0); Albumin/Globulin Ratio 0.8 (0.8-1.8); Alk Phos 88 U/L (50-136); Anion Gap 6 mmol/L (6-16); Aspartate Aminotrans (AST/SGOT 38 U/L (12-37); Bilirubin, Total 0.6 mg/dL (0.1-1.0); Blood Urea Nitrogen 17 mg/dL (8-24); Bun/Creatinine Ratio 20.2 (12.0-20.0); CO2, Blood 24 mmol/L (21-32); Calcium, Blood 8.8 mg/dL (8.5-10.1); Chloride, Blood 111 mmol/L (98-108); Creatinine, Blood 0.84 mg/dL (0.60-1.20); Globulin, Blood 3.9 g/dL (2.2-4.0); Glomerular Filtration Rate >60 (60-); Glucose, Blood 92 mg/dL (70-99); Potassium, Blood 5.5 mmol/L (3.5-5.5); Sodium, Blood 141 mmol/L (136-145); Total Protein, Blood 7.1 g/dL (6.4-8.2)
[2021-01-20 12:53] LABS: Source, Urine Clean Catch
[2021-01-20 12:59] LABS: Appearance, Urine Clear (Clear); Bilirubin, Urine Neg (Neg); Blood, Urine Neg (Neg); Color, Urine Yellow (P-Yellow); Glucose Qualitative, Urine Neg (Neg); Ketones, Urine Neg (Neg); Leukocyte Esterase, Urine Neg (Neg); Nitrite, Urine Neg (Neg); Protein, Urine 1+ (Neg); Urobilinogen, Urine NORM (Normal)
--- NOTE | 2021-01-20 20:58 | NUR ---
will follow up with rody from care management on getting pt medicaid and memory care.
== END 2021-01-20 14:06 | disposition home or self-care (01) ==
LOC: ER 11:26
PROVIDERS: Emergency Medicine
DX: F03.90 Unspecified dementia, unspecified severity, without behavioral disturbance, psychotic disturbance, mood disturbance, and anxiety (principal); R10.9 Unspecified abdominal pain; M54.9 Dorsalgia, unspecified; I87.2 Venous insufficiency (chronic) (peripheral); Z88.0 Allergy status to penicillin; Z91.018 Allergy to other foods; Z79.899 Other long term (current) drug therapy
CPT/HCPCS: 80053; 85025; 99284

== ENCOUNTER 2021-02-21 15:14 | Emergency (ER) | payer OTHER ==
[~2021-02-21] VITALS: Ht 182.9 cm; Wt 74.8 kg
[2021-02-21 15:40] LABS: BASOPHILS ABSOLUTE AUTO 0.02 K/mm3 (0.00-0.23); BASOPHILS PERCENT AUTO 1 % (0-2); EOSINOPHILS ABSOLUTE AUTO 0.08 K/mm3 (0.00-0.68); EOSINOPHILS PERCENT AUTO 2 % (0-6); Hematocrit 31.3 % (37.0-53.0); Hemoglobin 10.6 g/dL (13.5-17.5); IMMATURE GRAN ABSOLUTE AUTO 0.03 K/mm3 (0.00-0.10); IMMATURE GRAN PERCENT AUTO 1 % (0-1); LYMPHOCYTES PERCENT AUTO 16 % (21-46); MONOCYTES ABSOLUTE AUTO 0.33 K/mm3 (0.16-1.47); MONOCYTES PERCENT AUTO 8 % (4-13); Mean Corpuscular HGB 33.2 pg (26.0-34.0); Mean Corpuscular HGB Conc 33.9 g/dL (31.5-36.5); Mean Corpuscular Volume 98 fL (80-100); Mean Platelet Volume 9.7 fL (9.1-12.4); NEUTROPHILS ABSOLUTE AUTO 3.18 K/mm3 (1.96-9.15); NEUTROPHILS PERCENT AUTO 73 % (41-73); Platelet Count 154 K/mm3 (150-400); RDW Coefficient Variation 14.4 % (11.7-14.2); Red Blood Cell Count 3.19 M/mm3 (4.30-5.90); White Blood Cell Count 4.34 K/mm3 (4.00-11.30)
[2021-02-21] MEDS ORDERED: ACET500 PO (15:53)
[2021-02-21] MEDS ORDERED: DICLOFENAC SOD100 GM (15:54)
[2021-02-21] MEDS ORDERED: PRED20 (15:55)
[2021-02-21] MEDS ORDERED: [UNRECOGNIZED DRUG - OTHER] (15:56)
[2021-02-21] MEDS ORDERED: Gormel75 GM (15:57)
[2021-02-21] MEDS ORDERED: ANTIFUNGAL30 GM (15:57)
[2021-02-21 15:58] LABS: Alanine Aminotransfer (ALT/SGP 27 U/L (12-78); Albumin, Blood 3.1 g/dL (3.4-5.0); Alk Phos 100 U/L (50-136); Anion Gap 6 mmol/L (6-16); Aspartate Aminotrans (AST/SGOT 15 U/L (12-37); Bilirubin, Total 0.4 mg/dL (0.1-1.0); Blood Urea Nitrogen 28 mg/dL (8-24); Bun/Creatinine Ratio 26.7 (12.0-20.0); CO2, Blood 23 mmol/L (21-32); Calcium, Blood 8.4 mg/dL (8.5-10.1); Chloride, Blood 112 mmol/L (98-108); Creatinine, Blood 1.05 mg/dL (0.60-1.20); Glomerular Filtration Rate >60 (60-); Glucose, Blood 165 mg/dL (70-99); Potassium, Blood 4.1 mmol/L (3.5-5.5); Sodium, Blood 141 mmol/L (136-145); Total Protein, Blood 6.1 g/dL (6.4-8.2)
[2021-02-21] MEDS ORDERED: VITAMIN E180 MG (15:58)
[2021-02-21] MEDS ORDERED: Vitamin A and1 EACH (15:59)
== END 2021-02-21 18:08 | disposition home or self-care (01) ==
LOC: ER 15:14
PROVIDERS: Emergency Medicine
DX: R55 Syncope and collapse (principal); Z88.0 Allergy status to penicillin; Z91.018 Allergy to other foods; Z79.899 Other long term (current) drug therapy
CPT/HCPCS: 71045; 80053; 85025; 93005; 93010; 96360; 99285-25; J7030

== ENCOUNTER 2021-06-20 00:21 | Emergency (ER) | payer OTHER ==
[~2021-06-20] VITALS: Ht 182.9 cm; Wt 74.8 kg
[~2021-06-20 00:21] MED LIST changes: +ACET500 PO; +ANTIFUNGAL30 GM; +DICLOFENAC SOD100 GM; +Gormel75 GM; +PRED20; +VITAMIN E180 MG; +Vitamin A and1 EACH; +[UNRECOGNIZED DRUG - OTHER]
[2021-06-20 03:04] LABS: BASOPHILS ABSOLUTE AUTO 0.03 K/mm3 (0.00-0.23); BASOPHILS PERCENT AUTO 1 % (0-2); EOSINOPHILS ABSOLUTE AUTO 0.29 K/mm3 (0.00-0.68); EOSINOPHILS PERCENT AUTO 6 % (0-6); Hematocrit 36.7 % (37.0-53.0); Hemoglobin 12.2 g/dL (13.5-17.5); IMMATURE GRAN ABSOLUTE AUTO 0.01 K/mm3 (0.00-0.10); IMMATURE GRAN PERCENT AUTO 0 % (0-1); LYMPHOCYTES ABSOLUTE AUTO 1.44 K/mm3 (0.84-5.20); LYMPHOCYTES PERCENT AUTO 29 % (21-46); MONOCYTES ABSOLUTE AUTO 0.52 K/mm3 (0.16-1.47); MONOCYTES PERCENT AUTO 11 % (4-13); Mean Corpuscular HGB 32.5 pg (26.0-34.0); Mean Corpuscular HGB Conc 33.2 g/dL (31.5-36.5); Mean Corpuscular Volume 98 fL (80-100); Mean Platelet Volume 10.4 fL (9.1-12.4); NEUTROPHILS ABSOLUTE AUTO 2.63 K/mm3 (1.96-9.15); NEUTROPHILS PERCENT AUTO 53 % (41-73); Platelet Count 170 K/mm3 (150-400); RDW Coefficient Variation 13.8 % (11.7-14.2); RDW Standard Deviation 50.2 fL (35.1-46.3); Red Blood Cell Count 3.75 M/mm3 (4.30-5.90); White Blood Cell Count 4.92 K/mm3 (4.00-11.30)
[2021-06-20 03:17] LABS: Alanine Aminotransfer (ALT/SGP 21 U/L (12-78); Albumin, Blood 3.8 g/dL (3.4-5.0); Albumin/Globulin Ratio 1.1 (0.8-1.8); Alk Phos 76 U/L (50-136); Anion Gap 7 mmol/L (6-16); Aspartate Aminotrans (AST/SGOT 13 U/L (12-37); Bilirubin, Total 0.4 mg/dL (0.1-1.0); Blood Urea Nitrogen 35 mg/dL (8-24); CO2, Blood 27 mmol/L (21-32); Calcium, Blood 9.1 mg/dL (8.5-10.1); Chloride, Blood 108 mmol/L (98-108); Creatinine, Blood 1.03 mg/dL (0.60-1.20); Globulin, Blood 3.4 g/dL (2.2-4.0); Glomerular Filtration Rate >60 (60-); Glucose, Blood 99 mg/dL (70-99); Potassium, Blood 4.4 mmol/L (3.5-5.5); Sodium, Blood 142 mmol/L (136-145); Total Protein, Blood 7.2 g/dL (6.4-8.2); Troponin I <0.015 ng/mL (0.000-0.040)
== END 2021-06-20 08:30 | disposition home or self-care (01) ==
LOC: ER 00:21
PROVIDERS: Physician Assistant
DX: G56.02 Carpal tunnel syndrome, left upper limb (principal); Z88.0 Allergy status to penicillin; Z87.891 Personal history of nicotine dependence
CPT/HCPCS: 36415; 70450; 71045; 80053; 84484; 85025; 93005; 93010; 99285-25

== ENCOUNTER 2021-10-25 15:13 | Emergency (ER) | payer OTHER ==
[~2021-10-25] VITALS: Ht 182.9 cm; Wt 74.8 kg
== END 2021-10-25 16:37 | disposition home or self-care (01) ==
LOC: ER 15:13
DX: S61.213A Laceration without foreign body of left middle finger without damage to nail, initial encounter (principal); W27.0XXA Contact with workbench tool, initial encounter; Z88.0 Allergy status to penicillin; Z88.8 Allergy status to other drugs, medicaments and biological substances; Z87.891 Personal history of nicotine dependence; Z79.899 Other long term (current) drug therapy
CPT/HCPCS: 73140; 90714

== ENCOUNTER 2021-11-02 06:24 | Emergency (ER) | payer OTHER ==
[~2021-11-02] VITALS: Ht 182.9 cm; Wt 76.2 kg
[2021-11-02] MEDS ORDERED: OCEAN104 ML (08:23)
== END 2021-11-02 08:44 | disposition home or self-care (01) ==
LOC: ER 06:24
DX: R09.81 Nasal congestion (principal); Z88.0 Allergy status to penicillin; Z91.018 Allergy to other foods; Z79.899 Other long term (current) drug therapy; Z87.891 Personal history of nicotine dependence
CPT/HCPCS: 99282

== ENCOUNTER 2021-11-26 19:52 | Emergency (ER) | payer OTHER ==
[~2021-11-26] VITALS: Ht 182.9 cm; Wt 79.4 kg
[~2021-11-26 19:52] MED LIST changes: +OCEAN104 ML
[2021-11-26 20:53] LABS: BASOPHILS ABSOLUTE AUTO 0.02 K/mm3 (0.00-0.23); BASOPHILS PERCENT AUTO 0 % (0-2); EOSINOPHILS ABSOLUTE AUTO 0.18 K/mm3 (0.00-0.68); EOSINOPHILS PERCENT AUTO 4 % (0-6); Hematocrit 31.5 % (37.0-53.0); Hemoglobin 10.6 g/dL (13.5-17.5); IMMATURE GRAN ABSOLUTE AUTO 0.02 K/mm3 (0.00-0.10); IMMATURE GRAN PERCENT AUTO 0 % (0-1); LYMPHOCYTES ABSOLUTE AUTO 0.82 K/mm3 (0.84-5.20); LYMPHOCYTES PERCENT AUTO 17 % (21-46); MONOCYTES ABSOLUTE AUTO 0.33 K/mm3 (0.16-1.47); MONOCYTES PERCENT AUTO 7 % (4-13); Mean Corpuscular HGB 33.3 pg (26.0-34.0); Mean Corpuscular HGB Conc 33.7 g/dL (31.5-36.5); Mean Corpuscular Volume 99 fL (80-100); Mean Platelet Volume 9.8 fL (9.1-12.4); NEUTROPHILS ABSOLUTE AUTO 3.44 K/mm3 (1.96-9.15); NEUTROPHILS PERCENT AUTO 72 % (41-73); Platelet Count 153 K/mm3 (150-400); RDW Coefficient Variation 13.7 % (11.7-14.2); RDW Standard Deviation 49.4 fL (35.1-46.3); Red Blood Cell Count 3.18 M/mm3 (4.30-5.90); White Blood Cell Count 4.81 K/mm3 (4.00-11.30)
[2021-11-26 21:12] LABS: Albumin, Blood 3.3 g/dL (3.4-5.0); Albumin/Globulin Ratio 1.1 (0.8-1.8); Bilirubin, Total 0.5 mg/dL (0.1-1.0); Calcium, Blood 8.6 mg/dL (8.5-10.1); Globulin, Blood 2.9 g/dL (2.2-4.0); Total Protein, Blood 6.2 g/dL (6.4-8.2)
== END 2021-11-26 21:53 | disposition left against medical advice (07) ==
LOC: ER 19:52
PROVIDERS: Physician Assistant
DX: R53.1 Weakness (principal); Z79.899 Other long term (current) drug therapy; Z53.21 Procedure and treatment not carried out due to patient leaving prior to being seen by health care provider
CPT/HCPCS: 36415; 80053; 82550; 85025; J7030

== ENCOUNTER 2021-12-25 01:19 | Emergency (ER) | payer OTHER ==
[~2021-12-25] VITALS: Ht 182.9 cm; Wt 74.8 kg
[2021-12-25 04:02] LABS: BASOPHILS ABSOLUTE AUTO 0.03 K/mm3 (0.00-0.23); BASOPHILS PERCENT AUTO 1 % (0-2); EOSINOPHILS ABSOLUTE AUTO 0.28 K/mm3 (0.00-0.68); EOSINOPHILS PERCENT AUTO 6 % (0-6); Hematocrit 32.1 % (37.0-53.0); Hemoglobin 10.7 g/dL (13.5-17.5); IMMATURE GRAN ABSOLUTE AUTO 0.01 K/mm3 (0.00-0.10); IMMATURE GRAN PERCENT AUTO 0 % (0-1); LYMPHOCYTES ABSOLUTE AUTO 1.08 K/mm3 (0.84-5.20); LYMPHOCYTES PERCENT AUTO 24 % (21-46); MONOCYTES ABSOLUTE AUTO 0.43 K/mm3 (0.16-1.47); MONOCYTES PERCENT AUTO 10 % (4-13); Mean Corpuscular HGB 32.9 pg (26.0-34.0); Mean Corpuscular HGB Conc 33.3 g/dL (31.5-36.5); Mean Corpuscular Volume 99 fL (80-100); Mean Platelet Volume 10.4 fL (9.1-12.4); NEUTROPHILS ABSOLUTE AUTO 2.66 K/mm3 (1.96-9.15); NEUTROPHILS PERCENT AUTO 59 % (41-73); Platelet Count 126 K/mm3 (150-400); RDW Coefficient Variation 13.6 % (11.7-14.2); RDW Standard Deviation 48.9 fL (35.1-46.3); Red Blood Cell Count 3.25 M/mm3 (4.30-5.90); White Blood Cell Count 4.49 K/mm3 (4.00-11.30)
[2021-12-25 04:14] LABS: Albumin, Blood 3.1 g/dL (3.4-5.0); Albumin/Globulin Ratio 1.1 (0.8-1.8); Bilirubin, Total 0.3 mg/dL (0.1-1.0); Bun/Creatinine Ratio 35.8 (12.0-20.0); Calcium, Blood 8.5 mg/dL (8.5-10.1); Creatinine, Blood 0.92 mg/dL (0.60-1.20); Globulin, Blood 2.8 g/dL (2.2-4.0); Potassium, Blood 3.9 mmol/L (3.5-5.5); Total Protein, Blood 5.9 g/dL (6.4-8.2)
[2021-12-25] MEDS ORDERED: DIPATR PO ×2 (04:37→21:37)
== END 2021-12-25 05:00 | disposition home or self-care (01) ==
LOC: ER 01:19
PROVIDERS: Student in an Organized Health Care Education/Training Program
DX: R19.7 Diarrhea, unspecified (principal); I10 Essential (primary) hypertension; Z88.0 Allergy status to penicillin; Z88.8 Allergy status to other drugs, medicaments and biological substances; Z79.899 Other long term (current) drug therapy; Z87.891 Personal history of nicotine dependence
CPT/HCPCS: 36415; 80053; 85025; A9270; J7120

== ENCOUNTER 2021-12-25 21:20 | Emergency (ER) | payer OTHER ==
[~2021-12-25] VITALS: Ht 182.9 cm; Wt 74.8 kg
[~2021-12-25 21:20] MED LIST changes: +DIPATR PO
[2021-12-25] MEDS ORDERED: DIPATR PO (21:37)
== END 2021-12-25 21:47 | disposition home or self-care (01) ==
LOC: ER 21:20
DX: R19.7 Diarrhea, unspecified (principal); Z88.0 Allergy status to penicillin; Z91.018 Allergy to other foods; Z79.899 Other long term (current) drug therapy
CPT/HCPCS: 99281; A9270

== ENCOUNTER 2022-01-24 17:43 | Emergency (ER) | payer OTHER | END 2022-01-24 18:09 | disposition home or self-care (01) | LOC: ER 17:43 | DX: S51.012A Laceration without foreign body of left elbow, initial encounter (principal); W01.0XXA Fall on same level from slipping, tripping and stumbling without subsequent striking against object, initial encounter; Z88.0 Allergy status to penicillin; Z88.8 Allergy status to other drugs, medicaments and biological substances; Z79.899 Other long term (current) drug therapy; Z87.891 Personal history of nicotine dependence ==

== ENCOUNTER 2022-03-06 07:27 | Emergency (ER) | payer OTHER ==
[~2022-03-06] VITALS: Ht 182.9 cm; Wt 77.1 kg
[2022-03-06 08:20] LABS: BASOPHILS ABSOLUTE AUTO 0.03 K/mm3 (0.00-0.23); BASOPHILS PERCENT AUTO 1 % (0-2); EOSINOPHILS ABSOLUTE AUTO 0.16 K/mm3 (0.00-0.68); EOSINOPHILS PERCENT AUTO 4 % (0-6); Hematocrit 33.6 % (37.0-53.0); Hemoglobin 11.4 g/dL (13.5-17.5); IMMATURE GRAN ABSOLUTE AUTO 0.02 K/mm3 (0.00-0.10); IMMATURE GRAN PERCENT AUTO 1 % (0-1); LYMPHOCYTES ABSOLUTE AUTO 0.61 K/mm3 (0.84-5.20); LYMPHOCYTES PERCENT AUTO 14 % (21-46); MONOCYTES ABSOLUTE AUTO 0.25 K/mm3 (0.16-1.47); MONOCYTES PERCENT AUTO 6 % (4-13); Mean Corpuscular HGB 33.2 pg (26.0-34.0); Mean Corpuscular HGB Conc 33.9 g/dL (31.5-36.5); Mean Corpuscular Volume 98 fL (80-100); NEUTROPHILS ABSOLUTE AUTO 3.33 K/mm3 (1.96-9.15); NEUTROPHILS PERCENT AUTO 76 % (41-73); Platelet Count 144 K/mm3 (150-400); RDW Coefficient Variation 14.3 % (11.7-14.2); Red Blood Cell Count 3.43 M/mm3 (4.30-5.90)
[2022-03-06 08:39] LABS: Albumin, Blood 3.6 g/dL (3.4-5.0); Albumin/Globulin Ratio 1.2 (0.8-1.8); Bilirubin, Total 0.7 mg/dL (0.1-1.0); Creatinine, Blood 0.85 mg/dL (0.60-1.20); Potassium, Blood 3.9 mmol/L (3.5-5.5); Total Protein, Blood 6.6 g/dL (6.4-8.2)
[2022-03-06 08:59] LABS: Source, Urine Clean Catch
[2022-03-06 09:09] LABS: Bilirubin, Urine Neg (Neg); Blood, Urine 2+ (Neg); Glucose Qualitative, Urine Neg (Neg); Ketones, Urine Neg (Neg); Leukocyte Esterase, Urine Neg (Neg); Nitrite, Urine Neg (Neg); Protein, Urine 2+ (Neg); Specific Gravity, Urine 1.015 (1.003-1.022); Urobilinogen, Urine NORM (Normal)
[2022-03-06 09:18] LABS: Appearance, Urine Clear (Clear); Color, Urine Pale Yellow (P-Yellow)
[2022-03-06 09:19] LABS: Bacteria Rare /hpf; Red Blood Cells, Urine 0-2 /hpf (0-2); Squamous Epithelial Cells Rare /hpf (Few); White Blood Cells, Urine 0-2 /hpf (0-5)
[2022-03-06] MEDS ORDERED: CEFD300 PO (10:15)
[2022-03-06] MEDS ORDERED: AZIT250 PO (10:15)
== END 2022-03-06 10:49 | disposition home or self-care (01) ==
LOC: ER 07:27
PROVIDERS: Physician Assistant
DX: J18.9 Pneumonia, unspecified organism (principal); I10 Essential (primary) hypertension; F03.90 Unspecified dementia, unspecified severity, without behavioral disturbance, psychotic disturbance, mood disturbance, and anxiety; Z88.0 Allergy status to penicillin; Z88.8 Allergy status to other drugs, medicaments and biological substances; Z87.891 Personal history of nicotine dependence
CPT/HCPCS: 36415; 71045; 80053; 81001; 83690; 85025; 93005; 93010; A9270

== ENCOUNTER 2022-03-23 17:44 | Emergency (ER) | payer OTHER ==
[~2022-03-23] VITALS: Ht 172.7 cm; Wt 74.8 kg
[~2022-03-23 17:44] MED LIST changes: +AZIT250 PO
[2022-03-23] MEDS ORDERED: BENZ100A PO (22:44)
[2022-03-23] MEDS ORDERED: IBUP600 PO (22:44)
== END 2022-03-23 23:06 | disposition home or self-care (01) ==
LOC: ER 17:44
DX: U07.1 COVID-19 (principal); I10 Essential (primary) hypertension; Z91.011 Allergy to milk products; Z88.0 Allergy status to penicillin; Z79.899 Other long term (current) drug therapy; Z87.891 Personal history of nicotine dependence
CPT/HCPCS: 71046; 99283-25; A9270

== ENCOUNTER 2022-03-28 13:56 | Emergency (ER) | payer OTHER ==
[~2022-03-28] VITALS: Ht 182.9 cm; Wt 79.4 kg
[~2022-03-28 13:56] MED LIST changes: +BENZ100A PO; +IBUP600 PO
[2022-03-28] MEDS ORDERED: Voltaren100 GM TOP (16:25)
== END 2022-03-28 16:48 | disposition home or self-care (01) ==
LOC: ER 13:56
DX: S70.12XA Contusion of left thigh, initial encounter (principal); M17.12 Unilateral primary osteoarthritis, left knee; I10 Essential (primary) hypertension; Z91.011 Allergy to milk products; Z88.0 Allergy status to penicillin; Z79.899 Other long term (current) drug therapy; Z87.891 Personal history of nicotine dependence; W22.8XXA Striking against or struck by other objects, initial encounter
CPT/HCPCS: 73502; 73562-LT

== ENCOUNTER 2022-03-29 02:41 | Emergency (ER) | payer OTHER ==
[~2022-03-29] VITALS: Ht 188 cm; Wt 77.1 kg
[~2022-03-29 02:41] MED LIST changes: +Voltaren100 GM TOP
[2022-03-29 04:54] LABS: Source, Urine Clean Catch
[2022-03-29 05:14] LABS: Appearance, Urine Clear (Clear); Bilirubin, Urine Neg (Neg); Blood, Urine 1+ (Neg); Color, Urine Yellow (P-Yellow); Glucose Qualitative, Urine Neg (Neg); Ketones, Urine Neg (Neg); Leukocyte Esterase, Urine Neg (Neg); Nitrite, Urine Neg (Neg); Protein, Urine Neg (Neg); Urobilinogen, Urine NORM (Normal)
[2022-03-29 05:36] LABS: Bacteria Not Seen /hpf; Red Blood Cells, Urine 0-2 /hpf (0-2); Squamous Epithelial Cells Not Seen /hpf (Few); White Blood Cells, Urine 0-2 /hpf (0-5)
== END 2022-03-29 05:25 | disposition home or self-care (01) ==
LOC: ER 02:41
PROVIDERS: Student in an Organized Health Care Education/Training Program
DX: Z00.8 Encounter for other general examination (principal); I10 Essential (primary) hypertension; Z91.011 Allergy to milk products; Z88.0 Allergy status to penicillin; Z79.899 Other long term (current) drug therapy; Z87.891 Personal history of nicotine dependence
CPT/HCPCS: 36415; 81001; 93005; 93010

== ENCOUNTER 2022-04-04 09:57 | Emergency (ER) | payer OTHER ==
[~2022-04-04] VITALS: Ht 190.5 cm; Wt 83.9 kg
[2022-04-04 10:52] LABS: BASOPHILS ABSOLUTE AUTO 0.04 K/mm3 (0.00-0.23); BASOPHILS PERCENT AUTO 1 % (0-2); EOSINOPHILS ABSOLUTE AUTO 0.22 K/mm3 (0.00-0.68); EOSINOPHILS PERCENT AUTO 6 % (0-6); Hematocrit 30.4 % (37.0-53.0); Hemoglobin 10.3 g/dL (13.5-17.5); IMMATURE GRAN ABSOLUTE AUTO 0.01 K/mm3 (0.00-0.10); IMMATURE GRAN PERCENT AUTO 0 % (0-1); LYMPHOCYTES PERCENT AUTO 18 % (21-46); MONOCYTES ABSOLUTE AUTO 0.32 K/mm3 (0.16-1.47); MONOCYTES PERCENT AUTO 8 % (4-13); Mean Corpuscular HGB 33.8 pg (26.0-34.0); Mean Corpuscular HGB Conc 33.9 g/dL (31.5-36.5); Mean Corpuscular Volume 100 fL (80-100); Mean Platelet Volume 10.1 fL (9.1-12.4); NEUTROPHILS ABSOLUTE AUTO 2.62 K/mm3 (1.96-9.15); NEUTROPHILS PERCENT AUTO 67 % (41-73); Platelet Count 142 K/mm3 (150-400); RDW Coefficient Variation 13.9 % (11.7-14.2); RDW Standard Deviation 50.2 fL (35.1-46.3); Red Blood Cell Count 3.05 M/mm3 (4.30-5.90); White Blood Cell Count 3.91 K/mm3 (4.00-11.30)
[2022-04-04 11:09] LABS: Albumin, Blood 3.2 g/dL (3.4-5.0); Albumin/Globulin Ratio 1.2 (0.8-1.8); Bilirubin, Total 0.4 mg/dL (0.1-1.0); Bun/Creatinine Ratio 31.3 (12.0-20.0); Calcium, Blood 8.6 mg/dL (8.5-10.1); Creatinine, Blood 0.99 mg/dL (0.60-1.20); Globulin, Blood 2.6 g/dL (2.2-4.0); Potassium, Blood 4.3 mmol/L (3.5-5.5); Total Protein, Blood 5.8 g/dL (6.4-8.2)
[2022-04-04 12:44] LABS: Source, Urine Clean Catch
[2022-04-04 12:48] LABS: Appearance, Urine Clear (Clear); Bilirubin, Urine Neg (Neg); Blood, Urine 1+ (Neg); Color, Urine Yellow (P-Yellow); Glucose Qualitative, Urine Neg (Neg); Ketones, Urine Neg (Neg); Leukocyte Esterase, Urine Neg (Neg); Nitrite, Urine Neg (Neg); Protein, Urine 1+ (Neg); Urobilinogen, Urine NORM (Normal)
[2022-04-04 12:59] LABS: Bacteria Rare /hpf; Red Blood Cells, Urine 0-2 /hpf (0-2); Squamous Epithelial Cells Rare /hpf (Few); White Blood Cells, Urine 0-2 /hpf (0-5)
== END 2022-04-04 13:21 | disposition home or self-care (01) ==
LOC: ER 09:57
PROVIDERS: Emergency Medicine; Physician Assistant
DX: R53.1 Weakness (principal); Z87.891 Personal history of nicotine dependence; Z86.16 Personal history of COVID-19
CPT/HCPCS: 36415; 71046; 80053; 81001; 84484; 85025; 93005; 93010; 99284-25; J7030

== ENCOUNTER 2022-04-08 16:34 | Emergency (ER) | payer OTHER ==
[~2022-04-08] VITALS: Ht 182.9 cm; Wt 79.4 kg
--- NOTE | 2022-04-08 17:41 | NUR ---
Spiritual Care - Nurse/Agricultural Produce Sorter Request Pt. is in a consult room, and will not be admitted. Pt. is unsettled and grieving the recent loss of his . Listen empatheticially with a calming presence. Pt. displays evidence of hearing loss, but this turner in was able to communicate with him. Establish rapport, and give pastoral care. Pt. displayed evidence of reduced anxiety. Prayed with Pt. Pt. verbalized gratitude for the spiritual care visit. Assisted Pt. to a wheelchair. ED nurse took over before he left the building.
== END 2022-04-08 17:36 | disposition home or self-care (01) ==
LOC: ER 16:34
DX: F32.A Depression, unspecified (principal); I10 Essential (primary) hypertension; Z87.891 Personal history of nicotine dependence; Z79.899 Other long term (current) drug therapy
CPT/HCPCS: 99283

== ENCOUNTER 2022-04-11 05:01 | Emergency (ER) | payer OTHER ==
[~2022-04-11] VITALS: Ht 182.9 cm; Wt 79.4 kg
[2022-04-11 06:14] LABS: BASOPHILS ABSOLUTE AUTO 0.03 K/mm3 (0.00-0.23); BASOPHILS PERCENT AUTO 1 % (0-2); EOSINOPHILS ABSOLUTE AUTO 0.34 K/mm3 (0.00-0.68); EOSINOPHILS PERCENT AUTO 7 % (0-6); Hematocrit 33.3 % (37.0-53.0); Hemoglobin 11.1 g/dL (13.5-17.5); IMMATURE GRAN ABSOLUTE AUTO 0.02 K/mm3 (0.00-0.10); IMMATURE GRAN PERCENT AUTO 0 % (0-1); LYMPHOCYTES ABSOLUTE AUTO 1.18 K/mm3 (0.84-5.20); LYMPHOCYTES PERCENT AUTO 25 % (21-46); MONOCYTES ABSOLUTE AUTO 0.35 K/mm3 (0.16-1.47); MONOCYTES PERCENT AUTO 8 % (4-13); Mean Corpuscular HGB 33.8 pg (26.0-34.0); Mean Corpuscular HGB Conc 33.3 g/dL (31.5-36.5); Mean Corpuscular Volume 102 fL (80-100); Mean Platelet Volume 9.9 fL (9.1-12.4); NEUTROPHILS ABSOLUTE AUTO 2.73 K/mm3 (1.96-9.15); NEUTROPHILS PERCENT AUTO 59 % (41-73); Platelet Count 151 K/mm3 (150-400); RDW Coefficient Variation 14.1 % (11.7-14.2); RDW Standard Deviation 52.4 fL (35.1-46.3); Red Blood Cell Count 3.28 M/mm3 (4.30-5.90); White Blood Cell Count 4.65 K/mm3 (4.00-11.30)
[2022-04-11 06:19] LABS: Albumin, Blood 3.6 g/dL (3.4-5.0); Albumin/Globulin Ratio 1.2 (0.8-1.8); Bilirubin, Total 0.4 mg/dL (0.1-1.0); Bun/Creatinine Ratio 30.8 (12.0-20.0); Calcium, Blood 8.9 mg/dL (8.5-10.1); Creatinine, Blood 1.04 mg/dL (0.60-1.20); Potassium, Blood 4.1 mmol/L (3.5-5.5); Total Protein, Blood 6.6 g/dL (6.4-8.2)
[2022-04-11 06:23] LABS: Source, Urine Clean Catch
[2022-04-11 06:39] LABS: International Normalized Ratio 1.04; Prothrombin Time Results 10.9 Sec (9.7-11.5)
[2022-04-11 06:44] LABS: Appearance, Urine Clear (Clear); Bilirubin, Urine Neg (Neg); Blood, Urine Neg (Neg); Color, Urine Yellow (P-Yellow); Glucose Qualitative, Urine Neg (Neg); Ketones, Urine Neg (Neg); Leukocyte Esterase, Urine Neg (Neg); Nitrite, Urine Neg (Neg); Protein, Urine Neg (Neg); Urobilinogen, Urine NORM (Normal)
[2022-04-11] MEDS ORDERED: Aspir 8181 MG PO (08:57)
== END 2022-04-11 09:15 | disposition home or self-care (01) ==
LOC: ER 05:01
PROVIDERS: Emergency Medicine; Student in an Organized Health Care Education/Training Program
DX: G45.9 Transient cerebral ischemic attack, unspecified (principal); I10 Essential (primary) hypertension; Z88.0 Allergy status to penicillin; Z88.8 Allergy status to other drugs, medicaments and biological substances; Z79.899 Other long term (current) drug therapy; Z87.891 Personal history of nicotine dependence
CPT/HCPCS: 36415; 70450; 80053; 81003; 85025; 85610; 93005; 93010; A9270

== ENCOUNTER 2022-04-12 01:42 | Emergency (ER) | payer OTHER ==
[~2022-04-12] VITALS: Ht 182.9 cm; Wt 79.4 kg
[~2022-04-12 01:42] MED LIST changes: +Aspir 8181 MG PO
== END 2022-04-12 02:20 | disposition home or self-care (01) ==
LOC: ER 01:42
DX: F41.0 Panic disorder [episodic paroxysmal anxiety] (principal); I10 Essential (primary) hypertension; Z88.0 Allergy status to penicillin; Z91.018 Allergy to other foods; Z79.899 Other long term (current) drug therapy; Z79.82 Long term (current) use of aspirin; Z87.891 Personal history of nicotine dependence
CPT/HCPCS: 93005; 93010

== ENCOUNTER 2022-05-12 05:18 | Emergency (ER) | payer OTHER ==
[~2022-05-12] VITALS: Ht 182.9 cm; Wt 79.4 kg
== END 2022-05-12 08:42 | disposition home or self-care (01) ==
LOC: ER 05:18
DX: F03.90 Unspecified dementia, unspecified severity, without behavioral disturbance, psychotic disturbance, mood disturbance, and anxiety (principal)
CPT/HCPCS: 99283

== ENCOUNTER 2022-05-25 08:58 | Emergency (ER) | payer OTHER ==
[~2022-05-25] VITALS: Ht 182.9 cm; Wt 90.7 kg
[2022-05-25 09:43] LABS: BASOPHILS ABSOLUTE AUTO 0.03 K/mm3 (0.00-0.23); BASOPHILS PERCENT AUTO 1 % (0-2); EOSINOPHILS ABSOLUTE AUTO 0.21 K/mm3 (0.00-0.68); EOSINOPHILS PERCENT AUTO 5 % (0-6); Hematocrit 35.1 % (37.0-53.0); Hemoglobin 11.7 g/dL (13.5-17.5); IMMATURE GRAN ABSOLUTE AUTO 0.03 K/mm3 (0.00-0.10); IMMATURE GRAN PERCENT AUTO 1 % (0-1); LYMPHOCYTES ABSOLUTE AUTO 0.67 K/mm3 (0.84-5.20); LYMPHOCYTES PERCENT AUTO 14 % (21-46); MONOCYTES ABSOLUTE AUTO 0.32 K/mm3 (0.16-1.47); MONOCYTES PERCENT AUTO 7 % (4-13); Mean Corpuscular HGB 32.8 pg (26.0-34.0); Mean Corpuscular HGB Conc 33.3 g/dL (31.5-36.5); Mean Corpuscular Volume 98 fL (80-100); Mean Platelet Volume 10.1 fL (9.1-12.4); NEUTROPHILS ABSOLUTE AUTO 3.38 K/mm3 (1.96-9.15); NEUTROPHILS PERCENT AUTO 73 % (41-73); Platelet Count 194 K/mm3 (150-400); RDW Coefficient Variation 13.6 % (11.7-14.2); RDW Standard Deviation 49.1 fL (35.1-46.3); Red Blood Cell Count 3.57 M/mm3 (4.30-5.90); White Blood Cell Count 4.64 K/mm3 (4.00-11.30)
[2022-05-25 09:59] LABS: Acetaminophen, Random <2.0 ug/mL (10.0-30.0); Ethanol (Alcohol), Blood, Med <3 mg/dL; Salicylate <1.7 mg/dL (2.8-20.0)
[2022-05-25 10:00] LABS: Alanine Aminotransfer (ALT/SGP 19 U/L (12-78); Albumin, Blood 3.3 g/dL (3.4-5.0); Alk Phos 68 U/L (50-136); Anion Gap 5 mmol/L (6-16); Aspartate Aminotrans (AST/SGOT 12 U/L (12-37); Bilirubin, Total 0.5 mg/dL (0.1-1.0); Blood Urea Nitrogen 25 mg/dL (8-24); CO2, Blood 27 mmol/L (21-32); Calcium, Blood 8.9 mg/dL (8.5-10.1); Chloride, Blood 110 mmol/L (98-108); Creatinine, Blood 1.04 mg/dL (0.60-1.20); Globulin, Blood 3.3 g/dL (2.2-4.0); Glomerular Filtration Rate 69 (60-); Glucose, Blood 130 mg/dL (70-99); Potassium, Blood 3.8 mmol/L (3.5-5.5); Sodium, Blood 142 mmol/L (136-145); Total Protein, Blood 6.6 g/dL (6.4-8.2)
[2022-05-25 10:54] LABS: Influenza A, PCR NEGATIVE (NEGATIVE); Influenza B, PCR NEGATIVE (NEGATIVE); Resp Syncytial Virus, PCR NEGATIVE (NEGATIVE); SARS-Cov-2 (COVID-19) PCR, MMC NEGATIVE (NEGATIVE)
[2022-05-25 12:06] LABS: Source, Urine Voided
[2022-05-25 12:17] LABS: Appearance, Urine Clear (Clear); Bilirubin, Urine Neg (Neg); Blood, Urine 2+ (Neg); Color, Urine Yellow (P-Yellow); Glucose Qualitative, Urine Neg (Neg); Ketones, Urine Neg (Neg); Leukocyte Esterase, Urine Neg (Neg); Nitrite, Urine Neg (Neg); Protein, Urine 2+ (Neg); Urobilinogen, Urine NORM (Normal)
[2022-05-25 12:47] LABS: U Amphetamine Screen Not Detected; U Barbituate Screen Not Detected; U Benzodiazapine Screen Not Detected; U Buprenorphine Screen Not Detected; U Cannabinoids Screen Not Detected; U Cocaine Screen Not Detected; U Methadone Screen Not Detected; U Methamphetamine Screen Not Detected; U Opiates Screen Not Detected; U Oxycodone Screen Not Detected; U Phencyclidine Screen Not Detected; U Propoxyphene Screen Not Detected
[2022-05-25 12:53] LABS: Bacteria Not Seen /hpf; Red Blood Cells, Urine 0-2 /hpf (0-2); Squamous Epithelial Cells Not Seen /hpf (Few); White Blood Cells, Urine Not Seen /hpf (0-5)
== END 2022-05-25 12:10 | disposition short-term general hospital (02) ==
LOC: ER 08:58
PROVIDERS: Emergency Medicine
DX: S52.592B Other fractures of lower end of left radius, initial encounter for open fracture type I or II (principal); X78.8XXA Intentional self-harm by other sharp object, initial encounter; I10 Essential (primary) hypertension; Z87.891 Personal history of nicotine dependence; Z20.822 Contact with and (suspected) exposure to COVID-19; Z23 Encounter for immunization; Z88.0 Allergy status to penicillin; Z91.018 Allergy to other foods; Z79.899 Other long term (current) drug therapy; Z79.82 Long term (current) use of aspirin
CPT/HCPCS: 0241U; 12031; 36415; 73100; 73206; 80053; 81001; 85025; 90471; 90714; 93005; 93010; 96365-59; 99291-25; G0480; J0690; Q9967